=== PATIENT | male | born 1995 ===

== ENCOUNTER 2025-04-18 14:46 | Emergency (ER) | payer SELFPAY ==
--- NOTE | 2025-04-18 15:31 | PD.EDADDENDU ---
Emergency Room Addendum Addendum Narrative: When I looked for the patient to start my evaluation, I was told the patient eloped. Pro Connolly MD
== END 2025-04-18 15:22 | disposition left against medical advice (07) ==
LOC: SERX 15:26
PROVIDERS: Emergency Provider Emergency Medicine
DX: Z53.21 Procedure and treatment not carried out due to patient leaving prior to being seen by health care provider (principal)
CPT/HCPCS: 99281